=== PATIENT | male | born 1930 | race Caucasian/White ===

== ENCOUNTER 2019-01-01 05:44 | Day surgery (SDC) | payer MEDICARE, OTHER ==
[~2019-01-01] VITALS: Ht 182.9 cm; Wt 93.0 kg
[2019-01-01] MEDS ORDERED: LACTATED RINGERS 1,000 ML IV SCH ×2 (06:46→09:00)
[2019-01-01 06:48] VITALS: BP 157/94
[2019-01-01] MEDS ORDERED: BUPIVACAINE/PF-EPI 0.5% 1:200K ONE (07:02)
[2019-01-01 07:06] LABS: ALBUMIN 3.9 g/dL (3.4-5.0); ANION GAP 6 mmol/L (5-15); CALCIUM 9.3 mg/dL (8.5-10.1); CHLORIDE 106 mmol/L (98-107)
[2019-01-01] MEDS ORDERED: UBID30CA6 PEG (07:09)
[2019-01-01] MEDS ORDERED: LISI-170 PO (07:09)
[2019-01-01] MEDS ORDERED: CINN1CAP2 PO (07:09)
[2019-01-01] MEDS ORDERED: MELA1TAB6 PO (07:09)
[2019-01-01] MEDS ORDERED: IBUP-1623 PO (07:09)
[2019-01-01] MEDS ORDERED: RED600CA2 PO (07:09)
[2019-01-01] MEDS ORDERED: ASCO500C2 PO (07:09)
[2019-01-01] MEDS ORDERED: FOLI-17 PO (07:09)
[2019-01-01 07:10] LABS: ALANINE AMINOTRANSFERASE 50 U/L (12-78); ALKALINE PHOSPHATASE 95 U/L (45-117); BILIRUBIN,TOTAL 0.8 mg/dL (0.2-1.0); CREATININE 1.29 mg/dL (0.7-1.3); TOTAL PROTEIN 8.3 g/dL (6.4-8.2)
[2019-01-01] MEDS ORDERED: MIDAZOLAM 1 MG/ML, 2ML ONE (07:18)
[2019-01-01] MEDS ORDERED: FENTANYL PF 250 MCG/5ML ONE (07:19)
[2019-01-01] MEDS ORDERED: ROCURONIUM 10MG/ML,5ML ONE (07:19)
[2019-01-01] MEDS ORDERED: LIDOCAINE-MPF 2% ,5ML ONE (07:20)
[2019-01-01] MEDS ORDERED: PROPOFOL 10 MG/ML, 20ML ONE (07:20)
[2019-01-01] MEDS ORDERED: PHENYLEPHRINE 10 MG/ML ONE (07:21)
[2019-01-01] MEDS ORDERED: CEFAZOLIN 1,000 MG ONE ×2 (07:22)
[2019-01-01] MEDS ORDERED: WATER-INJECTION,STERILE 10 ML IV ONE (07:22)
[2019-01-01] MEDS ORDERED: ONDANSETRON 2MG/ML, 2ML ONE (07:25)
[2019-01-01] MEDS ORDERED: DEXAMETHASONE 4 MG/ML, 1ML ONE (07:25)
[2019-01-01] MEDS ORDERED: SUGAMMADEX 200 MG/2 ML IVPush ONE (07:51)
[2019-01-01] MEDS ORDERED: FENTANYL PF 100 MCG/2ML IV PRN (08:00)
[2019-01-01] MEDS ORDERED: ACETAMINOPHEN 325 MG TABLET PO PRN (08:00)
[2019-01-01] MEDS ORDERED: OXYcodone 5 MG/5 ML ORAL.SOL UDC PO PRN (08:00)
[2019-01-01] MEDS ORDERED: MEPERIDINE/PF 25MG/0.5ML IVPush PRN (08:00)
[2019-01-01] MEDS ORDERED: HYDROmorphone 2 MG/ML, 1ML IVPush PRN (08:00)
[2019-01-01] MEDS ORDERED: hydrALAzine 20 MG/ML, 1ML IV PRN (08:00)
[2019-01-01] MEDS ORDERED: HALOPERIDOL 5 MG/ML IV PRN (08:00)
[2019-01-01] MEDS ORDERED: PROMETHAZINE 25 MG/ML, 1ML IV PRN (08:00)
[2019-01-01] MEDS ORDERED: EPHEDRINE 50 MG/ML, 1ML ONE (08:28)
[2019-01-01] MEDS ORDERED: MORPHINE SULFATE 4 MG/ML, 1ML IVPush PRN (08:30)
[2019-01-01] MEDS ORDERED: PROMETHAZINE 25 MG/ML, 1ML IM PRN (08:30)
[2019-01-01] MEDS ORDERED: ONDANSETRON 2MG/ML, 2ML IVPush PRN (08:30)
[2019-01-01] MEDS ORDERED: EPHEDRINE 50 MG/ML, 1ML IVPush ONE (09:00)
[2019-01-01] MEDS ORDERED: EPHEDRINE 50 MG/ML, 1ML IM ONE (09:00)
== END 2019-01-01 10:15 | disposition home or self-care (01) ==
LOC: OUT 05:44
PROVIDERS: ATTEND Surgery
DX: K42.9 Umbilical hernia without obstruction or gangrene (principal); I10 Essential (primary) hypertension; E11.9 Type 2 diabetes mellitus without complications; N40.0 Benign prostatic hyperplasia without lower urinary tract symptoms; Z72.89 Other problems related to lifestyle; Z79.1 Long term (current) use of non-steroidal anti-inflammatories (NSAID); Z79.84 Long term (current) use of oral hypoglycemic drugs; Z79.899 Other long term (current) drug therapy; Z87.891 Personal history of nicotine dependence
CPT/HCPCS: 36415; 49585; 80053; 93005; C1781; J0690; J1100; J2250; J2370; J2405; J2704; J3010; J7120